=== PATIENT | female | born 1955 | race Caucasian/White ===

== ENCOUNTER 2024-03-10 10:19 | Inpatient (IN) | payer BC, OTHER ==
[~2024-03-10] VITALS: Ht 152.4 cm; Wt 68.5 kg
[2024-03-10] MEDS ORDERED: IV NS 0.9% 250 ML IV ONE (10:28)
[2024-03-10] MEDS ORDERED: IOHEXOL-300 100 ML VIAL IV ONE (10:28)
[2024-03-10] MEDS ORDERED: IOHEXOL-350 100 ML VIAL IV ONE ×2 (10:31→10:46)
[2024-03-10 11:23] LABS: BASOPHILS % (AUTO) 0.7 % (0.0-2.0); EOSINOPHILS # (AUTO) 0.1 K/uL (0.0-0.7); EOSINOPHILS % (AUTO) 1.4 % (0.0-6.0); HEMATOCRIT 41 % (33-45); HEMOGLOBIN 13.7 g/dL (11.5-14.8); LYMPHOCYTES # (AUTO) 2.3 K/uL (0.8-4.8); LYMPHOCYTES % (AUTO) 34.7 % (20.0-44.0); MEAN CORPUSCULAR HEMOGLOBIN 30 PG (26.0-33.0); MEAN CORPUSCULAR HGB CONC 33 g/dl (31.0-36.0); MEAN CORPUSCULAR VOLUME 91 fL (82-100); MONOCYTES # (AUTO) 0.3 K/uL (0.1-1.30); MONOCYTES % (AUTO) 4.1 % (2.0-12.0); NEUTROPHILS # (AUTO) 3.8 K/uL (1.8-8.9); NEUTROPHILS % (AUTO) 59.1 % (43.0-81.0); PLATELET COUNT (AUTO) 162 K/uL (150-450); RED CELL DISTRIBUTION WIDTH 13.4 % (11.5-15.0); WHITE BLOOD COUNT (AUTO) 6.5 K/uL (4.3-11.0)
[2024-03-10] MEDS ORDERED: METF-442 PO (11:29)
[2024-03-10] MEDS ORDERED: INSU100I14 SQ (11:29)
[2024-03-10] MEDS ORDERED: DULO60CA64 PO (11:29)
[2024-03-10] MEDS ORDERED: INSU100I30 SQ (11:29)
[2024-03-10] MEDS ORDERED: DAPA10TA PO (11:29)
[2024-03-10] MEDS ORDERED: TOPI50TA PO (11:29)
[2024-03-10] MEDS ORDERED: ATOR80TA PO (11:29)
[2024-03-10] MEDS ORDERED: ASPI-1420 PO (11:29)
[2024-03-10 11:31] LABS: INR 0.96 (0.91-1.10); PARTIAL THROMBOPLASTIN TIME 28.5 SEC (24.3-34.3); PROTHROMBIN TIME 10.2 SECS (9.2-11.1)
[2024-03-10] MEDS: ASPIRIN 325 MG TABLET PO ONE (12:00)
[2024-03-10 12:02] LABS: CALCIUM, SERUM 8.8 mg/dL (8.5-10.1); CARBON DIOXIDE 24 mmol/L (21-32); CHLORIDE 106 mmol/L (98-107); CREATININE 0.6 mg/dL (0.6-1.3); GLUCOSE 375 mg/dL (74-106); SODIUM SERUM 140 mmol/L (136-145); UREA NITROGEN, BLOOD 17 mg/dL (7-18)
[2024-03-10 12:07] LABS: ALANINE AMINOTRANSFERASE 17 U/L (12-78); ALBUMIN 3.3 g/dL (3.4-5.0); ALKALINE PHOSPHATASE 97 U/L (46-116); ASPARTATE AMINOTRANSFERASE 12 U/L (15-37); BILIRUBIN,DIRECT 0.2 mg/dL (0.0-0.2); BILIRUBIN,TOTAL 0.6 mg/dL (0.2-1.0); TOTAL PROTEIN, SERUM 6.8 g/dL (6.4-8.2)
[2024-03-10] MEDS ORDERED: MAGNESIUM HYDROXIDE 30 ML UDC PO PRN (13:30)
[2024-03-10] MEDS ORDERED: MAG HYDROX/AL HYDROX/SIMETH 30 ML UDC PO PRN (13:30)
[2024-03-10] MEDS ORDERED: ZOLPIDEM TARTRATE 5 MG TABLET PO PRN (13:30)
[2024-03-10] MEDS ORDERED: HYDROCODONE/APAP 5/325MG TABLET PO PRN (13:30)
[2024-03-10] MEDS ORDERED: Z GUARD REMEDY 4 OZ OINT TP PRN (13:30)
[2024-03-10] MEDS ORDERED: ONDANSETRON HCL/PF 4 MG/2 ML VIAL IVP PRN (13:30)
[2024-03-10 14:00] VITALS: BP 129/72; TEMP 97.5; O2SAT 96
[2024-03-10] MEDS ORDERED: DEXTROSE 50%-WATER 50 ML DISP.SYRIN IV PRN (14:00)
[2024-03-10 14:47] LABS: BASOPHILS % (AUTO) 0.5 % (0.0-2.0); EOSINOPHILS # (AUTO) 0.1 K/uL (0.0-0.7); EOSINOPHILS % (AUTO) 1.1 % (0.0-6.0); HEMATOCRIT 42 % (33-45); HEMOGLOBIN 14.1 g/dL (11.5-14.8); LYMPHOCYTES # (AUTO) 2.8 K/uL (0.8-4.8); LYMPHOCYTES % (AUTO) 33.9 % (20.0-44.0); MEAN CORPUSCULAR HEMOGLOBIN 31 PG (26.0-33.0); MEAN CORPUSCULAR HGB CONC 33 g/dl (31.0-36.0); MEAN CORPUSCULAR VOLUME 92 fL (82-100); MONOCYTES # (AUTO) 0.4 K/uL (0.1-1.30); MONOCYTES % (AUTO) 4.2 % (2.0-12.0); NEUTROPHILS # (AUTO) 5.1 K/uL (1.8-8.9); NEUTROPHILS % (AUTO) 60.3 % (43.0-81.0); PLATELET COUNT (AUTO) 168 K/uL (150-450); RED BLOOD CELL COUNT(AUTO) 4.58 MIL/uL (4.0-5.2); RED CELL DISTRIBUTION WIDTH 13.6 % (11.5-15.0); WHITE BLOOD COUNT (AUTO) 8.4 K/uL (4.3-11.0)
[2024-03-10 15:02] LABS: CALCIUM, SERUM 8.9 mg/dL (8.5-10.1); CREATININE 0.5 mg/dL (0.6-1.3); POTASSIUM 4.1 mmol/L (3.5-5.1)
[2024-03-10 15:19] LABS: ALBUMIN 3.3 g/dL (3.4-5.0); BILIRUBIN,TOTAL 0.5 mg/dL (0.2-1.0); TOTAL PROTEIN, SERUM 6.9 g/dL (6.4-8.2)
[2024-03-10] MEDS: ENOXAPARIN SODIUM 40 MG/0.4 ML DISP.SYRIN SQ SCH (15:19)
[2024-03-10 15:26] LABS: THYROID STIMULATING HORMONE 0.848 uIU/mL (0.358-3.74)
[2024-03-10 15:27] LABS: INR 0.94 (0.91-1.10); PARTIAL THROMBOPLASTIN TIME 28.5 SEC (24.3-34.3)
[2024-03-10 16:17] LABS: ERYTHROCYTE SEDIMENTATION RATE 14 MM/HR (0-30)
[2024-03-10 17:00] VITALS: BP 129/72; TEMP 97.8; O2SAT 96
[2024-03-10] MEDS ORDERED: BLOOD SUGAR DIAGNOSTIC 1 EACH STRIP IN SCH ×2 (17:30→18:00)
[2024-03-10] MEDS: METFORMIN 500 MG TABLET PO SCH (18:16)
[2024-03-10] MEDS: BLOOD SUGAR DIAGNOSTIC 1 EACH STRIP VI SCH (18:16)
[2024-03-10] MEDS: INSULIN GLARGINE, 100 UNIT/ML CARTRIDGE SQ SCH (18:19)
[2024-03-10] MEDS: INSULIN REGULAR, HUMAN 100 UNIT/ML 3 ML VIAL SQ PRN (18:22)
[2024-03-10] MEDS: ATORVASTATIN 40 MG TABLET PO SCH (21:31)
[2024-03-10] MEDS: *INSULIN REGULAR(HUMULIN R)HUM 100 UNIT/ML VIAL SQ PRN (21:39)
[2024-03-10] MEDS: ACETAMINOPHEN 325 MG TABLET PO PRN (21:49)
[2024-03-11 08:00] VITALS: BP 100/65; TEMP 98.1; O2SAT 98
[2024-03-11 08:36] LABS: BASOPHILS % (AUTO) 0.6 % (0.0-2.0); EOSINOPHILS # (AUTO) 0.2 K/uL (0.0-0.7); EOSINOPHILS % (AUTO) 2.7 % (0.0-6.0); HEMATOCRIT 43 % (33-45); HEMOGLOBIN 14.4 g/dL (11.5-14.8); LYMPHOCYTES # (AUTO) 2.5 K/uL (0.8-4.8); LYMPHOCYTES % (AUTO) 35.2 % (20.0-44.0); MEAN CORPUSCULAR HEMOGLOBIN 31 PG (26.0-33.0); MEAN CORPUSCULAR HGB CONC 34 g/dl (31.0-36.0); MEAN CORPUSCULAR VOLUME 92 fL (82-100); MONOCYTES # (AUTO) 0.4 K/uL (0.1-1.30); NEUTROPHILS # (AUTO) 3.9 K/uL (1.8-8.9); NEUTROPHILS % (AUTO) 56.5 % (43.0-81.0); PLATELET COUNT (AUTO) 190 K/uL (150-450); RED BLOOD CELL COUNT(AUTO) 4.66 MIL/uL (4.0-5.2); RED CELL DISTRIBUTION WIDTH 13.6 % (11.5-15.0)
[2024-03-11] MEDS: PANTOPRAZOLE 40 MG TABLET.DR PO SCH (08:37)
[2024-03-11] MEDS: ASPIRIN EC 81 MG TABLET.DR PO SCH (08:37)
[2024-03-11] MEDS: DULOXETINE HCL 30 MG CAPSULE.DR PO SCH (08:38)
[2024-03-11] MEDS: TOPIRAMATE 25 MG TABLET PO SCH (08:38)
[2024-03-11 08:50] LABS: INR 0.92 (0.91-1.10); PARTIAL THROMBOPLASTIN TIME 23.9 SEC (24.3-34.3); PROTHROMBIN TIME 9.8 SECS (9.2-11.1)
[2024-03-11 09:49] LABS: CALCIUM, SERUM 8.9 mg/dL (8.5-10.1); CREATININE 0.5 mg/dL (0.6-1.3); MAGNESIUM 1.5 mg/dL (1.8-2.4); PHOSPHORUS 4.3 mg/dL (2.5-4.9)
[2024-03-11 10:47] LABS: THYROID STIMULATING HORMONE 0.436 uIU/mL (0.358-3.74)
[2024-03-11 11:57] LABS: THYROID STIMULATING HORMONE 0.445 uIU/mL (0.358-3.74)
[2024-03-11 12:00] VITALS: BP 117/64; TEMP 98.4; O2SAT 97
[2024-03-11 16:00] VITALS: BP 117/58; TEMP 98.6; O2SAT 98
[2024-03-12 07:32] LABS: BASOPHILS % (AUTO) 0.6 % (0.0-2.0); EOSINOPHILS # (AUTO) 0.3 K/uL (0.0-0.7); EOSINOPHILS % (AUTO) 4.5 % (0.0-6.0); HEMATOCRIT 41 % (33-45); HEMOGLOBIN 13.7 g/dL (11.5-14.8); LYMPHOCYTES # (AUTO) 2.8 K/uL (0.8-4.8); LYMPHOCYTES % (AUTO) 42.2 % (20.0-44.0); MEAN CORPUSCULAR HEMOGLOBIN 31 PG (26.0-33.0); MEAN CORPUSCULAR HGB CONC 34 g/dl (31.0-36.0); MEAN CORPUSCULAR VOLUME 92 fL (82-100); MONOCYTES # (AUTO) 0.4 K/uL (0.1-1.30); MONOCYTES % (AUTO) 5.7 % (2.0-12.0); NEUTROPHILS # (AUTO) 3.2 K/uL (1.8-8.9); PLATELET COUNT (AUTO) 191 K/uL (150-450); RED BLOOD CELL COUNT(AUTO) 4.44 MIL/uL (4.0-5.2); RED CELL DISTRIBUTION WIDTH 13.3 % (11.5-15.0); WHITE BLOOD COUNT (AUTO) 6.7 K/uL (4.3-11.0)
[2024-03-12 07:45] LABS: ALBUMIN 3.1 g/dL (3.4-5.0); BILIRUBIN,TOTAL 0.6 mg/dL (0.2-1.0); CALCIUM, SERUM 8.5 mg/dL (8.5-10.1); CREATININE 0.5 mg/dL (0.6-1.3); MAGNESIUM 1.6 mg/dL (1.8-2.4); PHOSPHORUS 3.2 mg/dL (2.5-4.9); POTASSIUM 3.8 mmol/L (3.5-5.1); TOTAL PROTEIN, SERUM 6.6 g/dL (6.4-8.2)
[2024-03-12] MEDS: CLOPIDOGREL BISULFATE 75 MG TABLET PO SCH (08:28)
[2024-03-12] MEDS: MAGNESIUM OXIDE 400 MG TABLET PO ONE (10:00)
[2024-03-12] MEDS ORDERED: CLOP75TA15 PO (10:26)
[2024-03-12] MEDS ORDERED: IOHEXOL-350 100 ML VIAL IV ONE (15:02)
[2024-03-12] MEDS ORDERED: CT SWABBABLE VALVE TRANS SET 1 EA INFUS.SET MC ONE (15:03)
[2024-03-12] MEDS ORDERED: METOPROLOL TARTRATE INJ 5 MG/5 ML AMPUL ONE (15:03)
[2024-03-12] MEDS ORDERED: IV NS 0.9% 250 ML IV ONE (15:03)
[2024-03-12] MEDS ORDERED: NITROGLYCERIN 0.4 MG/TAB BOTTLE ONE (15:03)
[2024-03-12] MEDS: METOPROLOL TARTRATE INJ 5 MG/5 ML AMPUL IVP PRN (15:25)
[2024-03-12] MEDS: NITROGLYCERIN 0.4 MG/TAB BOTTLE SL ONE (15:38)
[2024-03-12 20:00] VITALS: BP 132/62; TEMP 98.6; O2SAT 98
[2024-03-13] VITALS: BP 130/63; TEMP 98.6; O2SAT 98
[2024-03-13 04:00] VITALS: BP 106/69; TEMP 98.6; O2SAT 98
[2024-03-13 10:30] VITALS: BP 106/69; TEMP 98.6; O2SAT 98
[2024-03-13 12:05] VITALS: BP 106/69; TEMP 98.6; O2SAT 98
[2024-03-14] MEDS ORDERED: METFORMIN 500 MG TABLET PO SCH (17:00)
== END 2024-03-13 12:45 | disposition home or self-care (01) | DRG 69 ==
LOC: ER 10:19 → TELE1 12:27 → MEDSG1 03-13 08:54
DX: G45.9 Transient cerebral ischemic attack, unspecified (principal); I21.A1 Myocardial infarction type 2; E11.65 Type 2 diabetes mellitus with hyperglycemia; E78.5 Hyperlipidemia, unspecified; I25.10 Atherosclerotic heart disease of native coronary artery without angina pectoris; Z88.0 Allergy status to penicillin; Z79.4 Long term (current) use of insulin; Z79.84 Long term (current) use of oral hypoglycemic drugs; I10 Essential (primary) hypertension; Z20.822 Contact with and (suspected) exposure to COVID-19; Z86.73 Personal history of transient ischemic attack (TIA), and cerebral infarction without residual deficits; R47.81 Slurred speech; R29.702 NIHSS score 2
CPT/HCPCS: 36415; 70450-TC; 70496-TC; 70498-TC; 70551-TC; 71045-TC; 75574; 80048-TC; 80053-TC; 80061-TC; 80076-TC; 82962-TC; 83735-TC; 84100-TC; 84439-TC; 84443-TC; 84484-TC; 85025-TC; 85652-TC; 85730-TC; 86850-TC; 92526; 92611-TC; 93307-TC; 97110-TC; 97112-TC; 97116-TC; 97530-TC; 97535-TC; G0378; J1650; J1815; J3490; J7050; Q9967